=== PATIENT | female | born 1980 | race Caucasian/White ===

== ENCOUNTER 2017-07-07 17:47 | Emergency (ER) | payer OTHER ==
[~2017-07-07] VITALS: Ht 167.6 cm; Wt 113.4 kg
[~2017-07-07 17:47] MED LIST: CEP500 PO; LEVO-3 PO; LOR5/325 PO; MULT1CAP59 PO
[2017-07-07] MEDS ORDERED: OMEG10007 (18:14)
--- NOTE | 2017-07-07 18:20 | ER Report ---
History and Physical Time Seen By MD: 18:26 Hx. of Stated Complaint: fatigue since thu day, fever yesterday, cough occ productive of white secretions HPI/ROS 37-year-old female with cough fever and body aches since Thursday night Allergies: Coded Allergies: No Known Drug Allergies (Unverified , 07/07/17) Home Meds Active Scripts Albuterol Sulfate 90 Mcg/Act (PROAIR HFA 90 MCG/ACT) 8.5 Gm Hfa.aer.ad, 2 PUFF IH Q4-6H, #1 INHALER Prov:MARIANO VAZQUEZ 07/07/17 Levofloxacin 750 Mg Tab (LEVAQUIN 750 MG TAB) 750 Mg Tablet, 750 MG PO DAILY, # 6 TAB Prov:MARIANO VAZQUEZ 07/07/17 Reported Medications [place]-3/Dha/Epa/Fish Oil (Fish Oil 1,000 mg Softgel) 1,000 Mg (120 Mg-180 Mg) Capsule 07/07/17 Levothyroxine Sodium (LEVOTHYROXINE SODIUM) 100 Mcg Tablet, 100 MCG PO QDAY, TAB 10/27/16 Multivitamins (Multivitamin) 1 Each Capsule, 1 EACH PO DAILY 09/05/11 Past Medical/Surgical History hypothyriod Hx Smoking: No Hx Substance Use Disorder: No Hx Alcohol Use: Yes (OCCASIONAL) Family History of: HTN Constitutional Vital Sign - Last 24 Hours 07/07/17 07/07/17 07/07/17 07/07/17 18:09 18:10 18:17 18:30 Temp 98.4 Pulse 118 107 Resp 22 B/P (MAP) 133/90 (104) 133/90 Pulse Ox 91 91 98 O2 Delivery Room Air Room Air 07/07/17 07/07/17 07/07/17 07/07/17 18:30 18:30 18:32 18:35 Pulse 105 102 122 Resp 16 16 B/P (MAP) 112/73 (86) Pulse Ox 98 07/07/17 07/07/17 07/07/17 07/07/17 19:00 19:02 19:17 19:32 Pulse 93 97 95 B/P (MAP) 121/83 (96) Pulse Ox 94 96 91 07/07/17 07/07/17 07/07/17 07/07/17 19:50 20:05 20:20 20:25 Pulse 92 94 96 103 Pulse Ox 95 94 90 92 07/07/17 07/07/17 07/07/17 07/07/17 20:30 20:40 20:55 21:00 Pulse 104 104 B/P (MAP) 122/79 (93) 114/68 (83) Pulse Ox 90 88 07/07/17 07/07/17 07/07/17 21:10 21:25 21:30 Pulse 105 111 B/P (MAP) 117/66 (83) Pulse Ox 93 92 Intake and Output 07/07/17 07/07/17 07/08/17 15:00 23:00 07:00 Intake Total 1150 ml Balance 1150 ml Physical Exam 37 year old female skin pale warm and dry, tm non reddened throat is reddened no lymphadenopathy, hrr tachycardic, lungs decreased bilateral bases , abd obese bs x4 Medical Decision Making Data Points Result Diagram: 07/07/17185507/07/171855 Laboratory Hematology Test 07/07/17 18:56 07/07/17 19:00 Red Blood Count 5.44 M/uL (4.17-5.56) Mean Corpuscular Volume 84.9 fL (80.0-96.0) Mean Corpuscular Hemoglobin 29.3 pg (26.0-33.0) Mean Corpuscular Hemoglobin Concent 34.5 g/dL (32.0-36.0) Red Cell Distribution Width 13.2 % (11.5-14.5) Mean Platelet Volume 8.6 fL (7.2-11.1) Neutrophils (%) (Auto) 76.2 % (39.4-72.5) Lymphocytes (%) (Auto) 15.8 % (17.6-49.6) Monocytes (%) (Auto) 7.2 % (4.1-12.4) Eosinophils (%) (Auto) 0.0 % (0.4-6.7) Basophils (%) (Auto) 0.8 % (0.3-1.4) Nucleated RBC Relative Count (auto) 0.0 /100WBC Neutrophils # (Auto) 8.4 K/uL (2.0-7.4) Lymphocytes # (Auto) 1.7 K/uL (1.3-3.6) Monocytes # (Auto) 0.8 K/uL (0.3-1.0) Eosinophils # (Auto) 0.0 K/uL (0.0-0.5) Basophils # (Auto) 0.1 K/uL (0.0-0.1) Nucleated RBC Absolute Count (auto) 0.00 K/uL Prothrombin Time 13.0 seconds (12.0-14.4) Prothromb Time International Ratio 0.98 Activated Partial Thromboplast Time 32 seconds (23-35) D-Dimer Quantitative (PE/DVT) 0.96 ug/ml (0-0.50) Sodium Level 132 mmol/L (137-145) Potassium Level 3.9 mmol/L (3.5-5.0) Chloride Level 96 mmol/L (98-107) Carbon Dioxide Level 21 mmol/L (22-31) Blood Urea Nitrogen 12 mg/dl (7-18) Creatinine 0.90 mg/dl (0.52-1.04) Glomerular Filtration Rate Calc > 60.0 Random Glucose 101 mg/dl (75-110) Calcium Level 9.5 mg/dl (8.4-10.2) Total Bilirubin 0.8 mg/dl (0.2-1.3) Aspartate Amino Transf (AST/SGOT) 29 U/L (0-35) Alanine Aminotransferase (ALT/SGPT) 48 U/L (0-56) Alkaline Phosphatase 83 U/L (0-126) Troponin I < 0.012 ng/ml Total Protein 7.8 gm/dl (6.3-8.2) Albumin 4.7 g/dl (3.5-5.0) Influenza Virus Type A (PCR) Negative (NEGATIVE) Influenza Virus Type B (PCR) Negative (NEGATIVE) Group A Streptococcus Screen Negative (NEGATIVE) Chemistry Test 07/07/17 18:56 07/07/17 19:00 White Blood Count 11.0 k/uL (4.5-11.0) Red Blood Count 5.44 M/uL (4.17-5.56) Hemoglobin 15.9 g/dL (12.0-16.0) Hematocrit 46.1 % (34.0-47.0) Mean Corpuscular Volume 84.9 fL (80.0-96.0) Mean Corpuscular Hemoglobin 29.3 pg (26.0-33.0) Mean Corpuscular Hemoglobin Concent 34.5 g/dL (32.0-36.0) Red Cell Distribution Width 13.2 % (11.5-14.5) Platelet Count 193 K/uL (150-450) Mean Platelet Volume 8.6 fL (7.2-11.1) Neutrophils (%) (Auto) 76.2 % (39.4-72.5) Lymphocytes (%) (Auto) 15.8 % (17.6-49.6) Monocytes (%) (Auto) 7.2 % (4.1-12.4) Eosinophils (%) (Auto) 0.0 % (0.4-6.7) Basophils (%) (Auto) 0.8 % (0.3-1.4) Nucleated RBC Relative Count (auto) 0.0 /100WBC Neutrophils # (Auto) 8.4 K/uL (2.0-7.4) Lymphocytes # (Auto) 1.7 K/uL (1.3-3.6) Monocytes # (Auto) 0.8 K/uL (0.3-1.0) Eosinophils # (Auto) 0.0 K/uL (0.0-0.5) Basophils # (Auto) 0.1 K/uL (0.0-0.1) Nucleated RBC Absolute Count (auto) 0.00 K/uL Prothrombin Time 13.0 seconds (12.0-14.4) Prothromb Time International Ratio 0.98 Activated Partial Thromboplast Time 32 seconds (23-35) D-Dimer Quantitative (PE/DVT) 0.96 ug/ml (0-0.50) Glomerular Filtration Rate Calc > 60.0 Calcium Level 9.5 mg/dl (8.4-10.2) Total Bilirubin 0.8 mg/dl (0.2-1.3) Aspartate Amino Transf (AST/SGOT) 29 U/L (0-35) Alanine Aminotransferase (ALT/SGPT) 48 U/L (0-56) Alkaline Phosphatase 83 U/L (0-126) Troponin I < 0.012 ng/ml Total Protein 7.8 gm/dl (6.3-8.2) Albumin 4.7 g/dl (3.5-5.0) Influenza Virus Type A (PCR) Negative (NEGATIVE) Influenza Virus Type B (PCR) Negative (NEGATIVE) Group A Streptococcus Screen Negative (NEGATIVE) Coagulation Test 07/07/17 18:56 Prothrombin Time 13.0 seconds Prothromb Time International Ratio 0.98 Activated Partial Thromboplast Time 32 seconds D-Dimer Quantitative (PE/DVT) 0.96 ug/ml EKG/Imaging EKG Interpretation EKG at 2107 sinus tach ventricular rate 107 QTCs 453 Monitor Interpretation: Sinus Tachycardia Imaging FACILITY: [facility] [place] PATIENT NAME: Hyacinth Mcnair : 1980 MR: [id number] V: [id number] EXAM DATE: [id number] ORDERING PHYSICIAN: MARIANO VAZQUEZ TECHNOLOGIST: Location: [facility] - [place] Patient: Hyacinth Mcnair : 1980 Visit/Account:[id number] Date of Sevice: 07/07/2017 Examination: CHEST PA AND LAT Comparison: None. History: Fever. Findings: Left lower lobe masslike consolidation. Right lung is clear. No pneumothorax or effusion. Cardiac and hilar contour size is normal. Osseous structures are intact. IMPRESSION: Left lower lobe masslike consolidation is most suggestive of a pneumonia although radiographic follow-up in 4-6 weeks to document resolution is recommended. Report Dictated By: Nicho Saenz MD at 07/07/2017 7:33 PM Report E-Signed By: Nicho Saenz MD at 07/07/2017 7:34 PM WSN:[id number] Course/Re-evaluation Clinical Indication for ER IV: Hydration ED Course Given 1 L of IV fluid in the emergency room 750 mg and a DuoNeb treatment she remained tachycardic over 110 and did do an EKG which shows sinus tach and a d- dimer that was positive will do a CTA chest Re-evaluation Sats above 92 on room air after treatment feeling better after fluids are given CTA is negative for pulmonary embolus does show pneumonia left lower base she' ll be given prescriptions told to turn the ER if symptoms worsen otherwise follow-up with her primary care physician Decision to Disposition Date: Jul 07, 2017 Decision to Disposition Time: 21:29 Depart Departure Latest Vital Signs Vital Signs Date Time Temp Pulse Resp B/P (MAP) Pulse Ox O2 Delivery O2 Flow Rate FiO2 07/07/17 21:30 117/66 (83) 07/07/17 21:25 111 92 07/07/17 18:35 16 07/07/17 18:30 Room Air 07/07/17 18:10 98.4 Impression: Primary Impression: Pneumonia Condition: Improved Disposition: HOME OR SELF-CARE Referrals: MARIAJOSE MORGAN DO (PCP) 2 Days New Scripts Albuterol Sulfate 90 Mcg/Act (PROAIR HFA 90 MCG/ACT) 8.5 Gm Hfa.aer.ad 2 PUFF IH Q4-6H, #1 INHALER Prov: MARIANO VAZQUEZ 07/07/17 Levofloxacin 750 Mg Tab (LEVAQUIN 750 MG TAB) 750 Mg Tablet 750 MG PO DAILY, #6 TAB Prov: MARIANO VAZQUEZ 07/07/17 Patient Instructions: Pneumonia (DC) Additional Instructions: Take Levaquin 1 tablet daily for the next 6 days, drink plenty of fluids, and use albuterol puffer 2 puffs every 4 hours as needed for shortness of breath, and cough return for any worsening of symptoms follow up closely with her primary care physician MARIANO VAZQUEZ Jul 07, 2017 18:20
[2017-07-07] MEDS ORDERED: ALBUTEROL/IPRATROPIUM 3 ML NEB NEB ONE (18:25)
[2017-07-07] MEDS ORDERED: NS(*) 0.9% 1000 ML BAG 1,000 ML IV ONE (18:25)
[2017-07-07 19:09] LABS: PLATELET COUNT, AUTOMATED 193 K/uL (150-450)
--- NOTE | 2017-07-07 19:37 | RADIOLOGY IMAGING REPORT ---
FACILITY: [facility] PATIENT NAME: Hyacinth Mcnair : 1980 MR: [id number] V: [id number] EXAM DATE: ORDERING PHYSICIAN: MARIANO VAZQUEZ TECHNOLOGIST: Location: [facility] - [place] Patient: Hyacinth Mcnair : 1980 Visit/Account:[id number] Date of Sevice: 07/07/2017 Examination: CHEST PA AND LAT Comparison: None. History: Fever. Findings: Left lower lobe masslike consolidation. Right lung is clear. No pneumothorax or effusion. C ardiac and hilar contour size is normal. Osseous structures are intact. IMPRESSION: Left lower lobe masslike consolidation is most suggestive of a pneumonia although radiographic follow -up in 4-6 weeks to document resolution is recommended. Report Dictated By: Nicho Saenz MD at 07/07/2017 7:33 PM Report E-Signed By: Nicho Saenz MD at 07/07/2017 7:34 PM WSN:[id number]
[2017-07-07] MEDS ORDERED: LEVOFLOXACIN/D5W 750 MG/150 ML 150 ML IVPB ONE (19:55)
[2017-07-07] MEDS ORDERED: LEVO750T44 PO ×2 (20:06→22:40)
[2017-07-07] MEDS ORDERED: ALBU8.5H IH ×2 (20:08→22:40)
--- NOTE | 2017-07-07 21:17 | EKG ---
FACILITY: [facility] - [place] PATIENT NAME: MONTANA PARK : [id number] MR: [id number] V: [id number] EXAM DATE: ORDERING PHYSICIAN: MARIANO VAZQUEZ TECHNOLOGIST: ARRON Test Reason : TACHY Blood Pressure : / mmHG Vent. Rate : 107 BPM Atrial Rate : 107 BPM P-R Int : 132 ms QRS Dur : 072 ms QT Int : 340 ms P-R-T Axes : 011 038 007 degrees QTc Int : 453 ms Sinus tachycardia Possible left atrial enlargement Decreased R wave progression anteriorly Nonspecific T wave flattening No previous ECGs available Confirmed by REBECA RODRÍGUEZ ([id number]) on 07/08/2017 1:58:29 PM Referred By: Confirmed By:REBECA RODRÍGUEZ
[2017-07-07] MEDS ORDERED: NS(*) 0.9% 10 ML VIAL 50 ML ONE (21:33)
[2017-07-07] MEDS ORDERED: IOPAMIDOL 76% 75 ML INFUS BTL 75 ML ONE (21:34)
[2017-07-07 22:30] VITALS: BP 119/78
--- NOTE | 2017-07-07 22:38 | RADIOLOGY IMAGING REPORT ---
FACILITY: [facility] PATIENT NAME: Hyacinth Mcnair : 1980 MR: [id number] V: [id number] EXAM DATE: ORDERING PHYSICIAN: MARIANO VAZQUEZ TECHNOLOGIST: Location: [facility] Patient: Hyacinth Mcnair : 1980 Visit/Account:[id number] Date of Sevice: 07/07/2017 CT PE DATE: 07/07/2017 10:27 PM INDICATION: Shortness of breath. COMPARISON: Same-day radiographs. TECHNIQUE: Axial CT angiogram was obtained through the chest with intravenous contrast. Sagittal an d coronal MPR and MIP coronal reformations were also generated. 75 mL isovue 370. One of the follow ing dose optimization techniques was utilized in the performance of this exam: Automated exposure con trol; adjustment of the mA and/or kV according to the patient's size; or use of an iterative reconst ruction technique. Specific details can be referenced in the facility's radiology CT exam operationa l policy. FINDINGS: Thyroid / Thoracic Inlet: Thyroid is normal. Mildly enlarged lymph nodes at the left side of the tho racic inlet are likely reactive. Pulmonary Arteries: Normal. Heart and Aorta: Normal-size heart with no pericardial effusion. Nonaneurysmal thoracic aorta. Mediastinum and Mary: Mildly prominent mediastinal left hilar lymph nodes are likely reactive. Lungs and Pleura: No pleural effusion or pneumothorax. There is patchy consolidation in the superio r segment of the left lower lobe corresponding to the radiographic finding. Mild atelectasis. Breast and Axilla: Mildly enlarged retropectoral lymph node on the left is likely reactive. Upper Abdomen: No visualized acute abnormality. Liver is enlarged and diffusely hypoattenuating. Bones and Soft Tissues: No suspicious osseous or soft tissue abnormality. IMPRESSION: 1. No pulmonary embolism. 2. Probable pneumonia in the superior segment of the left lower lobe. 3. Hepatomegaly and steatosis. Report Dictated By: Fitz Moraes MD at 07/07/2017 10:26 PM Report E-Signed By: Fitz Moraes MD at 07/07/2017 10:34 PM WSN:[id number]
[2017-07-07 22:41] LABS: INR 0.98
== END 2017-07-07 22:58 | disposition home or self-care (01) ==
LOC: ER 18:04
DX: J18.9 Pneumonia, unspecified organism (principal); R00.0 Tachycardia, unspecified
CPT/HCPCS: 71046; 71275; 84484; 85025; 85379; 85610; 85730; 87081; 87502; 87880; 93005; 94640; 96361; 96365; 96366; 99284; J1956; J7030; J7620; Q9967; 82040; 82247; 82310; 82374; 82435; 82565; 82947; 84075; 84132; 84155; 84295; 84450; 84460; 84520

== ENCOUNTER 2017-07-18 16:07 | Emergency (ER) | payer OTHER ==
[~2017-07-18 16:07] MED LIST changes: +ALBU8.5H IH; +LEVO750T44 PO; +OMEG10007
[2017-07-18 16:13] VITALS: BP 118/85
--- NOTE | 2017-07-18 16:31 | ER Report ---
History and Physical Time Seen By MD: 16:20 Hx. of Stated Complaint: CUT LEFT THUMB WITH A KITCHEN KNIFE. BLEEDING NOT CONTROLLED HPI/ROS Chief concern: left thumb cut HPI: 37 year old female presents with laceration to left thumb, sustained while chopping food with a kitchen knife. Denies numbness, tingling, difficulty moving digit. Review of Systems: Musculoskeletal: Reports left thumb laceration. Neuro: Denies numbness, tingling left upper extremity. Allergies: Coded Allergies: No Known Drug Allergies (Unverified , 07/18/17) Home Meds Active Scripts Cephalexin 500 Mg Tab (KEFLEX 500 MG TAB) 500 Mg Tablet, 500 MG PO Q6H for 7 Days, #28 TAB Prov:LAURYN RODRIGUEZ 07/18/17 Albuterol Sulfate 90 Mcg/Act (PROAIR HFA 90 MCG/ACT) 8.5 Gm Hfa.aer.ad, 2 PUFF IH Q4-6H, #1 INHALER Prov:MARIANO VAZQUEZ 07/07/17 Reported Medications [place]-3/Dha/Epa/Fish Oil (Fish Oil 1,000 mg Softgel) 1,000 Mg (120 Mg-180 Mg) Capsule 07/07/17 Levothyroxine Sodium (LEVOTHYROXINE SODIUM) 100 Mcg Tablet, 100 MCG PO QDAY, TAB 10/27/16 Multivitamins (Multivitamin) 1 Each Capsule, 1 EACH PO DAILY 09/05/11 Discontinued Scripts Levofloxacin 750 Mg Tab (LEVAQUIN 750 MG TAB) 750 Mg Tablet, 750 MG PO DAILY, # 6 TAB Prov:MARIANO VAZQUEZ 07/07/17 Past Medical/Surgical History History of migraines, neurological disorders, hypothyroidism. History of laceration requiring stitches October 2016 left foot and 2017 left hand. Reviewed Nurses Notes: Yes Old Medical Records Reviewed: No Hx Smoking: No Smoking Status: Never Smoker Hx Substance Use Disorder: No Hx Alcohol Use: Yes (OCCASIONAL) Constitutional Vital Sign - Last 24 Hours 07/18/17 16:13 Temp 97.8 Pulse 74 Resp 14 B/P (MAP) 118/85 Pulse Ox 95 O2 Delivery Room Air Physical Exam Respiratory: clear to auscultation bilaterally CV: regular rate and rhythm. Capillary refill <2 seconds bilaterally upper extremities. Radial pulses 2+, regular bilaterally. Musculoskeletal: Left hand: Left thumb laceration 4 cm in length, approximately 0.5 cm in depth. Sensation intact to phalanges, bilaterally. Full ROM and strength 5/5 bilateral. Following review of systems and physical exam, the following diagnoses were considered: laceration of left thumb. Medical Decision Making ED Course/Re-evaluation ED Course Thorough HPI and review of systems obtained from patient. Physical exam revealed a left thumb laceration, 4cm in length and approximately 0.5 cm in depth. Full ROM, strength 5/5, sensations intact. The wound was anesthetized, cleaned and repaired described below. Patient will be discharged home. She is to follow-up with her primary care provider in 7-10 days to have sutures removed. She is monitor for any signs of infection. Patient was recently on Levaquin for a pneumonia. Due to recent antibiotic use and not inclined to start her on antibiotics. However we will go ahead and send a prescription in for Keflex to take in case she develops any signs of infection. I discussed this with the patient and her and they verbalized understanding and agreement with plan. Procedure: Laceration repair. Verbal consent was obtained from the patient. The 4cm L by 0.5cm D laceration on the left thumb was anesthetized in the usual fashion with a digital thumb block using 9ml of 1% lidocaine. The wound was scrubbed, draped and explored to its base with a gloved finger. There were no deep structures involved. No tendon injury was identified. The wound was repaired with 5-0 prolene and 11 simple interrupted sutures were placed. The wound repair was simple. The procedure was performed by myself. Decision to Disposition Date: Jul 18, 2017 Decision to Disposition Time: 18:11 Depart Departure Latest Vital Signs Vital Signs Date Time Temp Pulse Resp B/P (MAP) Pulse Ox O2 Delivery O2 Flow Rate FiO2 07/18/17 16:13 97.8 74 14 118/85 95 Room Air Impression: Primary Impression: Laceration of thumb, left Condition: Improved Disposition: HOME OR SELF-CARE Referrals: MARIAJOSE MORGAN DO (PCP) New Scripts Cephalexin 500 Mg Tab (KEFLEX 500 MG TAB) 500 Mg Tablet 500 MG PO Q6H for 7 Days, #28 TAB Prov: LAURYN RODRIGUEZ 07/18/17 Patient Instructions: Finger Laceration (ED) Additional Instructions: May take Ibuprofen or acetaminophen as needed for pain. Follow up with primary care provider, and stitches may be removed in 7-10 days. Take antibiotics if pus-like drainage or fever occurs. Problem Qualifiers Primary Impression: Laceration of thumb, left Encounter type: initial encounter Damage to nail status: without damage Foreign body presence: without foreign body Qualified Codes: S61.012A - Laceration without foreign body of left thumb without damage to nail, initial encounter LAURYN RODRIGUEZ Jul 18, 2017 16:30
[2017-07-18] MEDS ORDERED: CEPH500T7 PO (18:11)
== END 2017-07-18 18:14 | disposition home or self-care (01) ==
LOC: ER 16:11
DX: S61.012A Laceration without foreign body of left thumb without damage to nail, initial encounter (principal); W26.0XXA Contact with knife, initial encounter; Y93.G1 Activity, food preparation and clean up; Y92.000 Kitchen of unspecified non-institutional (private) residence as the place of occurrence of the external cause; Y99.8 Other external cause status
CPT/HCPCS: 99283

== ENCOUNTER → 2017-08-31 | Outpatient (CLI) | payer OTHER ==
[~2017-08-31] MED LIST changes: +CEPH500T7 PO
--- NOTE | 2017-08-31 16:34 | RADIOLOGY IMAGING REPORT ---
FACILITY: [facility] [place] PATIENT NAME: Hyacinth Mcnair : 1980 MR: [id number] V: [id number] EXAM DATE: ORDERING PHYSICIAN: MARIAJOSE MORGAN TECHNOLOGIST: [place] [facility] [place] Hyacinth Mcnair : 1980 Visit/Account:[id number] Date of Sevice: 08/31/2017 Study: Frontal and lateral views of the chest Indication: Follow-up pneumonia Comparison study: July 07, 2017 Findings: PA and lateral views of the chest demonstrate no evidence of acute infiltrate. The previo usly identified left lower lobe infiltrate has resolved. There is no evidence of pleural effusion. There is no evidence of pneumothorax. The mediastinal, cardiac, and diaphragmatic contours are unremarkable. The visualized bony structures are unremarkable. IMPRESSION: Unremarkable chest. Report Dictated By: Dino Lindo at 08/31/2017 4:29 PM Report E-Signed By: Dino Lindo at 08/31/2017 4:30 PM WSN:[id number]
== END ==
LOC: RAD 15:59
PROVIDERS: ATTEND Family Medicine
DX: J18.9 Pneumonia, unspecified organism (principal)
CPT/HCPCS: 71046

== ENCOUNTER → 2017-10-09 | Outpatient (REF) ==
[2017-10-09 09:27] LABS: LDL CHOLESTEROL 168 mg/dl
== END ==
DX: Z02.9 Encounter for administrative examinations, unspecified (principal)

== ENCOUNTER → 2017-10-18 | Outpatient (CLI) | payer OTHER | LOC: LAB 09:33 | PROVIDERS: ATTEND Obstetrics & Gynecology | DX: Z31.41 Encounter for fertility testing (principal); E28.2 Polycystic ovarian syndrome | CPT/HCPCS: 36415; 82670; 83001; 83002; 83520; 84146 ==

== ENCOUNTER → 2018-07-23 | Outpatient (REF) ==
[~2018-07-23] MED LIST changes: +METH4TAB66 PO; +PROM-110 PO; +RIZA10TA24 PO
[2018-07-23 09:40] LABS: LDL CHOLESTEROL 178 mg/dl
== END ==
DX: Z02.9 Encounter for administrative examinations, unspecified (principal)